=== PATIENT | male | born 1985 | race Caucasian/White ===

== ENCOUNTER 2019-08-08 17:25 | Emergency (ER) | payer OTHER, SELFPAY ==
[2019-08-08 17:30] VITALS: BP 172/112; PULSE 100; RESP 18; TEMP 36.6; O2SAT 98; BMI 36.6
--- NOTE | 2019-08-08 17:37 | W.ED.BACK ---
HPI - Back Pain/Injury General: Chief Complaint: Back Pain/Injury Stated Complaint: LEFT ARM NUMBNESS, ABD PAIN Time Seen by Provider: 08/08/19 17:37 Source: patient Mode of arrival: ambulatory Limitations: no limitations History of Present Illness: HPI Narrative: Patient presents with injury to the left chest wall and abdomen. Patient reports on Monday he was loading a refrigerator into the back of his truck lost his footing and the refrigerator came back landing on his left side. Patient was seen in the emergency department at [place] on Monday and had rib films that showed no abnormality. Patient was recommended to continue with Zantac for some concerns of reflux. Patient comes in today for persistent pain. Patient appears well. Patient appears in moderate to severe pain. Associated symptoms: Reports abdominal pain Review of Systems General: Reports: 10 or more systems reviewed and unremarkable except in HPI and below GI: Reports: abdominal pain Musc: Reports: other (chest wall pain, neck pain, left arm numbness) PFSH ED PFSH: Social History Smoking and tobacco status: former smoker Physical Exam Const: COMMON NORMALS: no apparent distress and oriented x3 GENERAL APPEARANCE: cooperative HENMT: COMMON NORMALS: normocephalic, external ears normal, EAC's normal, TM's normal bilaterally and external nose normal HEAD & SCALP: normal to inspection and normocephalic FACE & SINUS: normal facial exam NOSE: external nose normal GENERAL EAR: hearing not grossly impaired EXTERNAL EAR: Yes external ears normal EXTERNAL AUDITORY CANAL: EAC's normal TYMPANIC MEMBRANE: TM's normal bilaterally MOUTH: oral and palatal mucosa normal THROAT: posterior oropharynx normal Eye: COMMON NORMALS: PERRL and EOMs intact bilaterally PUPIL: Yes PERRL Neck/C-Spine: COMMON NORMALS: full ROM and no lymphadenopathy Lymph: LYMPHATIC: no lymphedema noted Chest: COMMONS NORMALS: inspection of chest normal and palpation of chest normal Resp: COMMON NORMALS: normal respiratory effort and clear to auscultation bilaterally AUSCULTATION: clear to auscultation bilaterally Cardio: COMMON NORMALS: regular rate and regular rhythm RATE: regular rate RHYTHM: regular rhythm GI: COMMON NORMALS: normal to inspection, nondistended, normoactive bowel sounds and non-tender : COMMON NORMALS: Yes no CVA tenderness BLADDER/KIDNEY EXAM: Yes no CVA tenderness Back/Pelvis: COMMON NORMALS: no CVA tenderness and thoracic and lumbar spine normal to inspection Extremity: COMMON NORMALS: normal to inspection GENERAL: No edema Neuro: COMMON NORMALS: oriented x3, moves all extremities and no focal motor deficits Psych: COMMON NORMALS: mental status grossly normal and cooperative Skin: COMMON NORMALS: no rashes or lesions noted GENERAL SKIN EXAM: no rashes or lesions noted Course Vital Signs: Vital signs: Vital Signs Temperature 97.9 F 08/08/19 17:30 Pulse Rate 93 08/08/19 19:46 Respiratory Rate 18 08/08/19 19:46 Blood Pressure 128/74 08/08/19 19:46 Pulse Oximetry 95 08/08/19 19:46 MDM - Back Pain/Injury MDM Narrative: Medical decision making narrative: Patient comes in today for complaints of injury sustained when a refrigerator fell back off the truck onto his left side. Patient reports injury occurred on Monday he has had persistent pain and discomfort to the area since then. Patient appears well. Patient appears in moderate pain. Exam notes upper left abdominal wall tenderness to palpation. Bowel sounds are present throughout. Movement of the extremities is normal. Chest wall tenderness is noted. Lungs are clear to auscultation. Vital signs are normal except for mildly elevation in blood pressure. Differential diagnosis includes rib fracture, abdominal organ injury, contusion, intervertebral disc injury to the cervical spine, lung contusion. CT scan of the cervical spine noted no injury to the neck or disc of the neck. CT to the chest abdomen and pelvis noted mesenteric contusion but otherwise no other sign of injury was noted. Laboratory values noted normal hemoglobin hematocrit, normal metabolic panel. Discussed exam with Dr. Knapp who agreed to plan of treating for pain and monitoring for fever or worsening symptoms. Discussed with patient regarding evaluation and recommendations for treatment and follow-up. Patient reported understanding agreed to plan. Lab Data: Labs: Lab Results 08/08/19 08/08/19 08/08/19 Range/Units 17:46 17:46 18:15 WBC 13.2 H (4.0-10.0) 10^3/ uL RBC 4.80 (4.1-5.3) 10^6/u L Hgb 13.7 (11.7-16.6) g/dL Hct 41.6 L (42.0-52.0) % MCV 86.7 (80-94) fL MCH 28.5 (28.0-34.0) pg MCHC 32.9 (30.0-36.0) g/dL RDW 12.3 (12.1-15.1) % Plt Count 288 (130-400) 10^3/c mm MPV 10.0 (7.4-10.4) fL Neut % (Auto) 72.8 % Lymph % (Auto) 12.1 % [place] % (Auto) 13.1 % Eos % (Auto) 1.4 % Baso % (Auto) 0.3 % Neut # (Auto) 9.6 H (1.8-7.7) 10^3/u L Lymph # (Auto) 1.6 (0.8-4.8) 10^3/u L [place] # (Auto) 1.7 H (0.2-0.9) 10^3/u L Eos # (Auto) 0.2 (0.0-0.8) 10^3/u L Baso # (Auto) 0.0 (0.0-0.1) 10^3/u L Nucleated RBC % (a uto) 0 % Nucleated RBCs # 0.0 /100WBC Sodium 139 (136-145) mmol/L Potassium 3.8 (3.5-5.1) mmol/L Chloride 100 (98-107) mmol/L Carbon Dioxide 28 (22-29) mmol/L Anion Gap 14.8 (5-19) BUN 8 (6-20) mg/dL Creatinine 1.0 (0.7-1.2) mg/dL GFR Calculation 86.6 L (90-130) mL/min Glucose 91 (65-115) mg/dL Calculated Osmolal ity 283 L (285-295) mOsm/k g Calcium 9.7 (8.5-10.5) mg/dL Urine Color Yellow (Yellow) Urine Appearance Clear (CLEAR) Urine pH 6.5 (5-7) Ur Specific Gravit y 1.020 (1.005-1.030) Urine Protein Neg (Negative) Urine Glucose (UA) Norm (Normal) Urine Ketones Negative (Negative) Urine Occult Blood Neg (Negative) Urine Nitrate Negative (Negative) Urine Bilirubin Neg (NEGATIVE) Urine Urobilinogen Norm (Negative) mg/dL Ur Leukocyte Sarah ase Negative (Negative) EKG Data^: EKG 1: Attestation: I personally reviewed and interpreted this EKG as follows: (1800, sinus tachycardia, no ST elevation, no ectopy, rate regular at 103) Discharge Plan Discharge Patient Disposition: Home, Self-Care Clinical Impression: Abdominal wall contusion Qualifiers: Encounter type: initial encounter Qualified Code(s): S30.1XXA - Contusion of abdominal wall, initial encounter Condition: Stable Prescriptions: New ketorolac 10 mg tablet 10 mg PO Q6H PRN (Reason: pain) Qty: 20 RF: 0 hydrocodone-acetaminophen 5-325 mg tablet 1 tab PO Q6H PRN (Reason: pain) Qty: 10 RF: 0 Discharge Orders: Discharge Order (Routine); Ordered 08/08/19 Ordered By: Denilson Chris Discharge Diet: Usual diet Discharge Activity: Increase activity as tolerated Patient Instructions: Abdominal Pain (ED) Activity Restrictions/Additional Instructions: Drink plenty of fluids Activity as tolerated Follow-up with primary care in one week Return to ER for worsening pain or high fever Discharge Date/Time: 08/08/19 19:47 Coding Level of Care Code ED Voice Over Artist for Chg Fwd Exam Problem Focused
--- NOTE | 2019-08-08 17:42 | CTR_ITS ---
PROCEDURE INFORMATION: Exam: CT Chest With Contrast Exam date and time: 08/08/2019 6:04 PM Age: 34 years old Clinical indication: Injury or trauma; Initial encounter; Luq; Blunt trauma (contusions or hematomas); Prior surgery; Surgery type: Appy TECHNIQUE: Imaging protocol: Computed tomography of the chest with intravenous contrast. Total DLP: 2398.61 mGy-cm Radiation optimization: All CT scans at this facility use at least one of these dose optimization techniques: automated exposure control; mA and/or kV adjustment per patient size (includes targeted exams where dose is matched to clinical indication); or iterative reconstruction. Contrast material: OMNI 300; Contrast volume: 95 ml; Contrast route: IV; COMPARISON: No relevant prior studies available. FINDINGS: Lungs: Mild scattered subpleural atelectasis. The lungs are otherwise clear. Pleural space: Unremarkable. No pneumothorax. No pleural effusion. Heart: Unremarkable. No cardiomegaly. No pericardial effusion. Aorta: Unremarkable. No aortic aneurysm. Lymph nodes: Unremarkable. No enlarged lymph nodes. Bones/joints: Mild rightward thoracic curvature. The bones are intact. No fracture. Soft tissues: Unremarkable. IMPRESSION: 1. No acute abnormality identified in the thorax. PROCEDURE INFORMATION: Exam: CT Abdomen And Pelvis With Contrast Exam date and time: 08/08/2019 6:04 PM Age: 34 years old Clinical indication: Injury or trauma; Initial encounter; Luq; Blunt trauma (contusions or hematomas); Prior surgery; Surgery type: Appy TECHNIQUE: Imaging protocol: Computed tomography of the abdomen and pelvis with intravenous contrast. Total DLP: 2398.61 mGy-cm Radiation optimization: All CT scans at this facility use at least one of these dose optimization techniques: automated exposure control; mA and/or kV adjustment per patient size (includes targeted exams where dose is matched to clinical indication); or iterative reconstruction. Contrast material: OMNI 300; Contrast volume: 95 ml; Contrast route: IV; COMPARISON: No relevant prior studies available. FINDINGS: Liver: Normal. No mass. Gallbladder and bile ducts: Normal. No calcified stones. No ductal dilation. Pancreas: Normal. No ductal dilation. Spleen: Normal. No splenomegaly. Adrenals: Normal. No mass. Kidneys and ureters: Normal. No hydronephrosis. Stomach and bowel: Unremarkable. No obstruction. No mucosal thickening. Appendix: The appendix is not visualized. Intraperitoneal space: Mild stranding in the anterior mesenteric fat in the left upper quadrant, anterior to the spleen. Vasculature: Unremarkable. No abdominal aortic aneurysm. Lymph nodes: Unremarkable. No enlarged lymph nodes. Bladder: Unremarkable as visualized. Reproductive: Unremarkable as visualized. Bones/joints: The bones are intact. No fracture. Soft tissues: Unremarkable. CT/CT chest abd pel w con* IMPRESSION: 1. Mild contusion in the anterior mesenteric fat in the left upper quadrant. 2. No fracture or solid organ trauma identified. Radiation Dose CTDIVOL = (mGy): DLP = 2398.61~2398.61 (mGy-cm)
--- NOTE | 2019-08-08 17:43 | CTR_ITS ---
PROCEDURE INFORMATION: Exam: CT Cervical Spine Without Contrast Exam date and time: 08/08/2019 6:04 PM Age: 34 years old Clinical indication: Injury or trauma; Injury history: Fridge fell on patient; Initial encounter; Blunt trauma TECHNIQUE: Imaging protocol: Computed tomography images of the cervical spine without contrast. Total DLP: 665.83 mGy-cm Radiation optimization: All CT scans at this facility use at least one of these dose optimization techniques: automated exposure control; mA and/or kV adjustment per patient size (includes targeted exams where dose is matched to clinical indication); or iterative reconstruction. COMPARISON: No relevant prior studies available. FINDINGS: Vertebrae: No acute fracture. Normal alignment. Discs/Spinal canal/Neural foramina: No disc herniations. No spinal canal stenosis. No neural foraminal narrowing. Soft tissues: Unremarkable. Mastoid air cells: Sclerotic right mastoid. Lymph nodes: Prominent lymph nodes in the neck are most likely reactive. Lungs: Lung apices are normal. CT/CT cervical spin wo con* [id number] IMPRESSION: No acute findings. Radiation Dose CTDIVOL = (mGy): DLP = 665.83 (mGy-cm)
--- NOTE | 2019-08-08 17:45 | ECG_ITS ---
Measurements Intervals [place] Rate: 103 P: 26 KS: 160 QRS: 53 QRSD: 102 T: 29 QT: 326 QTc: [address] & T-WAVE ABNORMALITY ABNORMAL RHYTHM ECG WARNING: DATA QUALITY MAY AFFECT INTERPRETATION No previous ECG available for comparison Electronically Signed On 08-08-2019 20:41:56 [employer] by Edna Hayes M.D. [email or web address]
[2019-08-08 17:55] LABS: Basophils % 0.3 %; Eosinophils # 0.2 10^3/uL (0.0-0.8); Eosinophils % 1.4 %; Hematocrit 41.6 % (42.0-52.0); Hemoglobin 13.7 g/dL (11.7-16.6); Lymphocytes # 1.6 10^3/uL (0.8-4.8); Lymphocytes % 12.1 %; Mean Corpuscular HGB Conc 32.9 g/dL (30.0-36.0); Mean Corpuscular Hemoglobin 28.5 pg (28.0-34.0); Mean Corpuscular Volume 86.7 fL (80-94); Monocytes # 1.7 10^3/uL (0.2-0.9); Monocytes % 13.1 %; Neutrophils # 9.6 10^3/uL (1.8-7.7); Neutrophils % 72.8 %; Nucleated Red Blood Cells % 0 %; Platelet Count 288 10^3/cmm (130-400); Red Cell Distribution Width 12.3 % (12.1-15.1); White Blood Count 13.2 10^3/uL (4.0-10.0)
[2019-08-08] MEDS: HYDROcodone-acetaminophen 10-325 mg Tablet 1 TAB PO (18:00)
[2019-08-08 18:14] LABS: Anion Gap 14.8 (5-19); Blood Urea Nitrogen 8 mg/dL (6-20); Calcium 9.7 mg/dL (8.5-10.5); Carbon Dioxide 28 mmol/L (22-29); Chloride 100 mmol/L (98-107); Glomerular Filtration Rate 86.6 mL/min (90-130); Glucose 91 mg/dL (65-115); Osmolality Calculated 283 mOsm/kg (285-295); Potassium 3.8 mmol/L (3.5-5.1); Sodium 139 mmol/L (136-145)
[2019-08-08] MEDS: iohexol 300 mg/mL 100 mL Btl 95 ML IV (18:40)
[2019-08-08 18:49] LABS: Add Urine Microscopic? NO
[2019-08-08 18:51] LABS: Blood Urine Neg (Negative); Glucose Urine UA Norm (Normal); Ketones Urine Negative (Negative); Nitrate Urine Negative (Negative); Protein Urine Neg (Negative); Urine Appearance Clear (CLEAR); Urine Color Yellow (Yellow); pH Urine 6.5 (5-7)
[2019-08-08 18:52] LABS: Bilirubin Urine Neg (NEGATIVE); Leukocyte Esterase Urine Negative (Negative); Urobilinogen Urine Norm (Negative)
[2019-08-08 19:46] VITALS: BP 128/74; PULSE 93; RESP 18; O2SAT 95
== END 2019-08-08 19:47 | disposition home or self-care (01) ==
PROVIDERS: Emergency Provider Nurse Practitioner Family
DX: S30.1XXA Contusion of abdominal wall, initial encounter (principal); W22.8XXA Striking against or struck by other objects, initial encounter; Z87.891 Personal history of nicotine dependence
CPT/HCPCS: 36415; 71260; 72125; 74177; 80048; 81003; 85025; 93005; 96374; 99282; 99283; A9270; Q9967

== ENCOUNTER → 2024-09-30 09:06 | Outpatient (BNVA) | payer OTHER, SELFPAY | PROVIDERS: Visit Provider Family Medicine | DX: Z02.1 Encounter for pre-employment examination (principal) | CPT/HCPCS: 80307 ==